=== PATIENT | female | born 1980 | race Hispanic/Latino ===

== ENCOUNTER 2016-07-08 17:06 | Emergency (ER) | payer OTHER ==
[~2016-07-08] VITALS: Ht 152.4 cm; Wt 113.4 kg
== END 2016-07-08 18:50 | disposition home or self-care (01) ==
LOC: ED 17:06
DX: M48.54XA Collapsed vertebra, not elsewhere classified, thoracic region, initial encounter for fracture (principal); M54.31 Sciatica, right side; M47.894 Other spondylosis, thoracic region
CPT/HCPCS: 99282